=== PATIENT | male | born 1965 | race Caucasian/White ===

== ENCOUNTER 2021-11-07 16:25 | Emergency (ER) | payer BC, SELFPAY ==
[2021-11-07 16:32] VITALS: BP 140/89; PULSE 83; RESP 14; TEMP 36.7; O2SAT 99; BMI 25.0
[2021-11-07 16:45] VITALS: BP 146/84; PULSE 80; RESP 18; TEMP 36.4; O2SAT 98; BMI 25.0
--- NOTE | 2021-11-07 18:36 | ED_ITS ---
HPI - Eye Problem General Date Seen: 11/07/21 Chief complaint: Eye Problems Stated complaint: OBJECT IN RIGHT EYE Time Seen by Provider: 11/07/21 16:32 Source: patient Mode of arrival: ambulatory Limitations: no limitations History of Present Illness HPI Narrative: Patient is a very nice 56-year-old gentleman who presents here with the feeling that something is in his right eye, this occurred approximately since yesterday at 2:00 a.m., he does work with metal, but does not remember getting anything in his eye and was wearing safety glasses he thinks it might be a lash in did try pulling his eyelid over his eye and irrigating it out when this occurred last night. All day today as the feeling of something is in his eye. He has really lost a lot of visual acuity but says it is a little bit blurry from time to time. No previous history of anything significant his eye is not were contacts denies any fevers chills or sweats or other issue. chief complaint: eye pain, eye redness and foreign body Onset (ago): hour(s) Onset description: sudden Duration: constant Location: right eye Eye Symptoms: foreign body sensation Place: home Mechanism: none Severity: moderate Associated symptoms: none Treatments Prior to Arrival: irrigated eye Related Data Patient tetanus UTD: No Home Medications Medication Instructions Recorded Confirmed albuterol sulfate 90 mcg/actuation inhalation 11/07/21 aerosol inhaler cetirizine 5 mg-pseudoephedrine ER 1 tab PO BID 11/07/21 11/07/21 120 mg tablet,extended release,12hr (Zyrtec-D) fluticasone 250 mcg-salmeterol 50 inhalation 11/07/21 mcg/dose blistr powdr for inhalation (Advair Diskus) ipratropium 0.5 mg-albuterol 3 mg ml inhalation 11/07/21 (2.5 mg base)/3 mL nebulization soln montelukast 10 mg tablet mg 11/07/21 multivitamin 1 tab PO DAILY 11/07/21 11/07/21 Allergies Allergy/AdvReac Type Severity Reaction Status Date / Time Sulfa (Sulfonamide AdvReac Intermediate Rash Verified 11/07/21 16:50 Antibiotics) pennicillin AdvReac Intermediate Rash Uncoded 11/07/21 16:50 Review of Systems Status of ROS: Reports: 6 or more systems reviewed and unremarkable except as noted in History and below Exam Narrative: Exam Narrative: Patient is a very nice gentleman no apparent distress examination of the right eye shows a little bit a redness of his sclera, there is no conjunctival redness, no swelling of his legs, no discharge. Extraocular muscles are normal in pupils are equal round reactive to light. Tetracaine is used in his right eye, this resulted in feeling of foreign body going away. New some fluorescein, at the 5 o'clock position there is a small area of depression consistent with a corneal abrasion, I was not able to see any evidence of a foreign body, or rust ring. His upper lid is everted and normal, and swabbed lower lid is checked and also normal. Const: Vital Signs, click to edit/add: Vital Signs - 24 hr 11/07/21 16:32 11/07/21 16:45 Temperature 98.1 F 97.6 F Pulse Rate [Right Pulse Oximeter] 83 80 Respiratory Rate 14 18 Blood Pressure [Ri ght Upper Arm] 140/89 H 146/84 H Pulse Oximetry 99 98 Oxygen Delivery Me thod Room Air Room Air Documenting provider has reviewed patient's vital signs: yes Common normals: no apparent distress Course Vital Signs Vital signs: Initial Vital Signs Temperature 98.1 F 11/07/21 16:32 Temperature Source Temporal Artery Scan 11/07/21 16:32 Pulse Rate 83 11/07/21 16:32 Respiratory Rate 14 11/07/21 16:32 Blood Pressure 140/89 H 11/07/21 16:32 Blood Pressure Mean 106 11/07/21 16:32 Blood Pressure Position Sitting 11/07/21 16:32 Pulse Oximetry 99 11/07/21 16:32 Oxygen Delivery Method 11/07/21 16:32 Vital Signs Temperature 98.1 F 11/07/21 16:32 Pulse Rate 83 11/07/21 16:32 Respiratory Rate 14 11/07/21 16:32 Blood Pressure 140/89 H 11/07/21 16:32 Pulse Oximetry 99 11/07/21 16:32 Oxygen Delivery Method 11/07/21 16:32 Temperature 97.6 F 11/07/21 16:45 Pulse Rate 80 11/07/21 16:45 Respiratory Rate 18 11/07/21 16:45 Blood Pressure 146/84 H 11/07/21 16:45 Pulse Oximetry 98 11/07/21 16:45 Oxygen Delivery Method 11/07/21 16:45 MDM - Eye Problem Differential Diagnosis Differential diagnosis: Likely corneal abrasion, conjunctivitis, acute iritis, hyphema, periorbital cellulitis, subconjunctival hemorrhage, glaucoma, corneal ulcer and ruptured globe Medical Records Attestation: I reviewed the patient's medical records. Discharge Plan Discharge Clinical Impression: Corneal abrasion Patient Disposition: Home, Self-Care Condition: Stable Instructions: Corneal Abrasion (DC) Additional Instructions: Home, rest, use of antibiotic drops in her eye. Recommend sunglasses, and safety glasses otherwise. If your not completely better by 2 days from now then I recommend follow-up at [facility] for recheck. Increasing pain, discharge, then he should come back to the ER. Ibuprofen 600 mg p.o. t.i.d. is a very effective treatment for this. Seems to be more of a corneal abrasion with foreign body sensation. Prescriptions: No Action fluticasone propion-salmeterol [Advair Diskus] 250-50 mcg/dose blister with device INHALATION Label Comments: INHALE 1 DOSE BY MOUTH TWICE DAILY IN THE MORNING AND EVENING APPROXIMATELY 12 HOURS APART. RINSE MOUTH AFTER EACH USE ipratropium-albuterol 0.5 mg-3 mg(2.5 mg base)/3 mL solution for nebulization INHALATION Label Comments: USE 1 AMPULE IN NEBULIZER 4 TIMES DAILY NEEDED montelukast 10 mg tablet Label Comments: TAKE 1 TABLET BY MOUTH ONCE DAILY IN THE EVENING albuterol sulfate 90 mcg/actuation HFA aerosol inhaler INHALATION Label Comments: INHALE 2 PUFFS BY MOUTH EVERY 4 TO 6 HOURS NEEDED cetirizine-pseudoephedrine [Zyrtec-D] 5-120 mg tablet extended release 12 hr 1 tab PO BID multivitamin Tablet 1 tab PO DAILY Follow Up/Referrals: Alexei Teran DO [Referring] - Ranjeet Stack OD [Referring] - Barry Anderson [Referring] - Provider,Not a Local [Primary Care Provider] - Peter Ac DO [Referring] - Stand Alone Forms: [facility] Info Instructions Procedures Eye Procedure Right: Location: cornea Topical anesthetic used: proparacaine Foreign body: other Evidence of corneal penetration: No Technique: cotton tip swab Procedure performed under: direct visualization with magnification and slit-lamp Post-procedure medication: topical anesthetic Patient tolerated procedure: well and no complications
[2021-11-07] MEDS: IBUPROFEN 600 MG TABLET PO (18:54)
[2021-11-07] MEDS: TETANUS/DIPHTH/PERTUSSIS 0.5 ML SYRINGE IM (18:54)
[2021-11-07] MEDS: TETRACAINE 0.5% OPHTH 2 DROP EYE-RIGHT (19:19)
[2021-11-07] MEDS: FLUORESCEIN SODIUM TOPICAL STRIP 1 STRIP EYE-RIGHT (19:19)
--- OUTSIDE RECORDS SUMMARY | 2021-11-11 07:26 | XMS_ITS | Clinical Summary ---
:1965 Author Organization [facility] [place] [address] Care Team Providers Name Role Phone Tika Mast Primary Care Provider [phone] Allergies Active Allergy Reactions Severity Noted Date Comments Unlisted Allergen Anaphylaxis High 12/23/2019 Bananas, w alnuts, (Include Detail In fresh micki matt, Comments) dragon fruit, t sunil fish, all melon s Penicillins Rash 04/25/2009 Pork/Porcine Containing Diarrhea 12/23/2019 Products Sulfa (Sulfonamide *Unknown - Pt Doesn't 04/25/2009 Antibiotics) Remember Medications Medication Sig Dispensed Refills Start Date End Date Status albuterol HFA Inhale 2 Puffs by 0 Active (PRO-AIR; VENTOLIN; mouth every 6 PROVENTIL) 90 hours if needed. mcg/actuation inhaler montelukast Take 20 mg by 0 11/27/2009 Act cas (SINGULAIR) 10 mg mouth once daily. tablet aspirin 81 mg tablet Take 1 tablet by 0 04/10/2011 Active mouth once daily with a meal. cetirizine-pseudoephe Take 1 tablet by 60 tablet 5 09/24/2016 Active drine, 5-120 mg, mouth 2 times (ZYRTEC-D) 5-120 mg daily. tabletIndications: Seasonal allergic rhinitis due to pollen MULTIVIT,THX,CALCIUM, Take 1 tablet by 0 Active IRON,MINS mouth. (MULTIVITAMIN AND MINERAL ORAL) nebulizer accessories For home use. 1 Kit 0 03/26/2019 Active kitIndications: Length of need: Exacerbation of 99 asthma, unspecified asthma severity, unspecified whether persistent ADVAIR DISKUS 250-50 1 Puff once 0 11/13/2019 Active mcg/dose diskus daily. inhaler albuterol-ipratropium Inhale 3 mL via a 60 mL 3 12/19/2020 Active (DUONEB) (2.5-0.5 mg) nebulizer 4 times in 3 mL NEBULIZATION daily if needed solutionIndications: for Shortness of Asthma, unspecified Breath 1st choice asthma severity, or Wheezing 1st unspecified whether choice. Every am complicated, unspecified whether persistent hydrocortisone 2.5% Apply to 30 g 0 07/23/2021 Active creamIndications: hemorrhoid 2 x Hemorrhoids, external daily polyethylene Take 4,000 mL by 4000 mL 0 10/17/2021 2 glycol-electrolyte mouth one time (GOLYTELY) for 1 dose. 236-22.74-6.74 -5.86 gram suspensionIndications : Encounter for screening colonoscopy Active Problems Problem Noted Date Exotropia, alternating 10/09/2020 Myopia of both eyes with astigmatism and presbyopia Tinnitus of both ears 08/24/2017 Colon polyp, repeat in 10/201911/10/2016 Overview: 3 mm polyp at the hepatic flexure sessil e serrated adenoma 2 mm polyp in the descending colon, infl ammatory polyp Non-bleeding hemorrhoids. Asthma 04/25/2009 Seasonal allergies 04/25/2009 Screening for colon cancer Calculus of gallbladder without cholecystitis without obstruction Encounter for colonoscopy due to history of adenomatou s colonic polyps Encounters Date Type Specialty Care Team Description 11/05/2021 Anesthesia Event Yogi Carrasco MD 11/05/2021 Surgery Harsha Vera COLONOSCBernabe SWAN MD 11/05/2021 Hospital Encounter Harsha Vera Col on cancer screening (Primary Dx) 11/05/2021 Travel 10/16/2021 Telephone Tika Mast PA from Last 3 Months Immunizations Name Administration Dates Next Due COVID-19 vaccine (Moderna 100mcg/0.5mL) LELIA PATTON 11/02/2020, 10/05/2020 COVID-19 vaccine (Moderna Booster 50mcg/0.25mL) ABDI, 07/23/19 22 MDV Pneumococcal Poly,23-Valent (Pneumovax) 04/19/2003 Td (Age >=7 Years) 08/07/2006 Tdap 04/27/2012 Family History Medical History Relation Name Comments Cancer-prostate Father Other Father COPD Other Mother Emphysema Stroke Mother Relation Name Status Comments Father Mother Social History Tobacco Use Types Packs/Day Years Used Date Never Smoker Smokeless Tobacco: Never Used Tobacco Cessation: Counseling Given: Yes Alcohol Use Standard Drinks/Week Comments Yes 0 (1 standard drink = 0.6 oz pure alcoho l) once a year Alcohol Habits Answer Date Recorded How often do you have a drink containing alcohol? Monthly or less 02/15/2020 How many drinks containing alcohol do you have on a 1 or 2 02/15/2020 typical day when you are drinking? How often do you have six or more drinks on one Never 02/15/2020 occasion? Comment: once a year 12/26/2019 Sex Assigned at Date Recorded Not on file COVID-19 Exposure Response Date Recorded In the last 10 days, have you been in contact with No / Unsu re 11/05/2021 9:55 AM CDT someone who was confirmed or suspected to have Coronavirus/COVID-19? Obstetrics History Last Filed Vital Signs Vital Sign Reading Time Taken Comments Blood Pressure 123/83 11/05/2021 1:00 PM CDT Pulse 65 11/05/2021 1:00 PM CDT Temperature 36.7 ??C (98 ??F) 11/05/2021 10:23 AM CDT Respiratory Rate 16 11/05/2021 1:00 PM CDT Oxygen Saturation 99% 11/05/2021 1:00 PM CDT Inhaled Oxygen Concentration - - Weight 94.7 kg (208 lb 11.2 oz) 11/05/2021 10:23 AM CDT Height 193 cm (6' 4) 11/05/2021 10:23 AM CDT Body Mass Index 25.4 11/05/2021 10:23 AM CDT Plan of Treatment Health Maintenance Due Date Last Done Comments Hepatitis C screening for age 0203/22/1982 18-79 Pneumococcal series for age 19-64 04/18/2004 04/19/2003 (2 - PCV) Zoster (shingles) series for age 0203/22/2014 50+ (1 of 2) Depression screening for age 12+ 11/22/2020 11/23/2019, 10/2017, 09/24/2016 Lipids for age 45-75 09/25/2021 09/25/2016, 04/27/2012 Influenza for age 50-64 10/17/2021 COVID-19 vaccine series (4 - 11/21/2021 07/22/2021, 021, Booster for Moderna series) 10/05/2020 Tetanus booster 04/27/2022 04/27/2012, 08/07/2006 BMI (ht and wt on same day) for 07/25/2022 07/25/2021, 06/07/2021, age 18+ 06/12/2020, Additional history exists Colonoscopy through age 75 11/05/2026 11/05/2021, 7 Tdap Completed 04/27/2012 Procedures Procedure Name Priority Date/Time Associated Diagnosis Comme nts COLONOSCOPY 11/05/2021 11:14 AM Results for this CDT procedure are i n the results section . COLONOSCOPY 11/05/2021 11:08 AM screening CDT from Last 3 Months Results COLONOSCOPY (11/05/2021 11:14 AM CDT) Specimen (Source) Anatomical Collection Method Collection Time Re ceived Time Location / / Volume Laterality 11/05/2021 11:14 AM CDT Narrative This result has an attachment that is no t available. Transcriptions Harsha Vera MD - 11/05/2021 12:06 PM CDT Endoscopy Patient Name: David Mccarty Date: 11/05/2021 Gender: Male Date of : 1965 Admit Type: Outpatient Procedure: Colonoscopy Proceduralist: Harsha Vera MD Referring MD: Yoandy Chase Indications/Pre-Op Diagnosis: High risk colon cancer surveillance: Personal history of colonic polyps Medications: Monitored Anesthesia Care Procedure Description: The patient had risks, benefits and alt ernatives explained to and gave informed consent. The patient had a sta ble cardiopulmonary status and judged an adequate candidate for consci ous sedation. The endoscope was passed through the an us and advanced to the cecum, identified by appendiceal orifice and i leocecal valve. The colonoscopy was performed without difficulty. The p atient tolerated the procedure well. The quality of the bowel preparat ion was good. The ileocecal valve, appendiceal orifice, and rectum were photographed. Complications: No immediate complication s. Estimated Blood Loss & Specimen: Estimated blood loss: none. Specimen collected: None Findings: The colon appeared normal. The perianal and digital rectal examina tions were normal. Impressions/Post-Op Diagnosis: - The colon appeared normal. - No specimens collected. Recommendation: - Repeat colonoscopy in 5 years for gabbie veillance. Harsha Vera MD 11/05/2021 12:05:59 PM This report has been signed electronical ly. Note Initiated On: 11/05/2021 11:14 AM Total Procedure Duration Time 0 hours 23 minutes 39 seconds Scope Withdrawal Time 0 hours 9 minutes 27 seconds Harsha Vera MD PROCEDURE ORD from Last 3 Months Insurance Payer Benefit Plan / Subscriber ID Effective Dates Phone Addre ss Type Group [employer] [id number] 2018-Rh[place] [address] [place] [address] BLUE CROSS BLUE CROSS OF [id number] 2020-Rhian[place] [address] [address] [place] [address] Odom,David Motor Vehicle Self 1965 [address] [id number] David Odom Workers Comp Self [id number] ([place] [id number] Advance Directives Latest Code Status on File Code Status Date Activated Date Inactivated Comments Full Code 11/05/2021 10:36 AM 11/05/2021 3:13 PM Code Status Discussion: Reviewed Preferences Full Code 12/26/2019 2:00 PM 12/26/2019 8:33 PM Code Status Discussion: Not Discussed Full Code 11/07/2016 8:24 AM 11/07/2016 1:00 PM Care Teams Art Psychotherapist Relationship Specialty Start Date End Date Tika Mast PA PCP - General 11/27/09 [id number] [facility] [place] [id number]
== END 2021-11-07 19:08 | disposition home or self-care (01) ==
PROVIDERS: Emergency Provider Family Medicine
DX: S05.01XA Injury of conjunctiva and corneal abrasion without foreign body, right eye, initial encounter (principal); X58.XXXA Exposure to other specified factors, initial encounter; Y93.9 Activity, unspecified; Y92.9 Unspecified place or not applicable; Y99.9 Unspecified external cause status
CPT/HCPCS: 90471; 90715; 99283; A9270

== ENCOUNTER 2022-12-18 19:54 | Emergency (ER) | payer BC, SELFPAY ==
[2022-12-18 20:03] VITALS: BP 136/82; PULSE 83; RESP 16; TEMP 36.8; O2SAT 98; BMI 26.8
--- NOTE | 2022-12-18 20:18 | ED_ITS ---
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 States that he felt it yesterday. Denies any changes in his vision. Related Data Home Medications Medication Instructions Recorded Confirmed albuterol sulfate 90 mcg/actuation 2 puff inhalation Q4H PRN 11/07/21 07/14/22 aerosol inhaler cetirizine 5 mg-pseudoephedrine ER 1 tab PO BID 11/07/21 07/14/22 120 mg tablet,extended release,12hr (Zyrtec-D) fluticasone 250 mcg-salmeterol 50 1 inh inhalation Q12H 11/07/21 07/14/22 mcg/dose blistr powdr for inhalation (Advair Diskus) ipratropium 0.5 mg-albuterol 3 mg ml inhalation 11/07/21 (2.5 mg base)/3 mL nebulization soln montelukast 10 mg tablet 10 mg PO DAILY 11/07/21 07/14/22 multivitamin 1 tab PO DAILY 11/07/21 07/14/22 Allergies Allergy/AdvReac Type Severity Reaction Status Date / Time Penicillins Allergy Verified 07/14/22 08:26 Sulfa (Sulfonamide AdvReac Intermediate Rash Verified 11/07/21 16:50 Antibiotics) Review of Systems Status of ROS: Reports: 6 or more systems reviewed and unremarkable except as noted in History and below [facility] Social History Smoking Status: Never smoker Do you use any of these nicotine containing products: None How often do you have a drink containing alcohol: never How often do you have six or more drinks on one occasion: Never AUDIT-C Alcohol total score: 0 Non-prescribed substance use: denies use Exam Narrative: Exam Narrative: Well-nourished well-developed patient in no acute distress. Alert and oriented. Answers questions appropriately. Mood and affect are appropriate. Thoughts are goal oriented and rational. No tangential or magical thinking noted. Patient speaks in full sentences without needing to catch his breath. HEENT: Normocephalic atraumatic. Pupils are equally round reactive to light. Extraocular muscles are intact. Conjunctivae are moist without any icterus noted. Moist mucous membranes. Patient has an obvious piece of metal on the medial border of the iris on his cornea. There is conjunctival injection around it. Const: Vital Signs, click to edit/add: Vital Signs - 24 hr 12/18/22 20:03 Temperature 98.2 F Pulse Rate [Pulse Oximeter] 83 Respiratory Rate 16 Blood Pressure [Ri ght Upper Arm] 136/82 Pulse Oximetry 98 Oxygen Delivery Me thod Room Air Course Course ED Course: In the ER today tetracaine was used on the eye and a 30 gauge needle was used to remove the piece of metal without difficulty. He does have a rust ring already present. There is no evidence of any other abnormality on the exam today. Vital Signs Vital signs: Initial Vital Signs Temperature 98.2 F 12/18/22 20:03 Temperature Source Temporal Artery Scan 12/18/22 20:03 Pulse Rate 83 12/18/22 20:03 Respiratory Rate 16 12/18/22 20:03 Blood Pressure 136/82 12/18/22 20:03 Blood Pressure Mean 100 12/18/22 20:03 Pulse Oximetry 98 12/18/22 20:03 Oxygen Delivery Method Room Air 12/18/22 20:03 Vital Signs Temperature 98.2 F 12/18/22 20:03 Pulse Rate 83 12/18/22 20:03 Respiratory Rate 16 12/18/22 20:03 Blood Pressure 136/82 12/18/22 20:03 Pulse Oximetry 98 12/18/22 20:03 Oxygen Delivery Method Room Air 12/18/22 20:03 Temperature 98.2 F 12/18/22 20:03 Pulse Rate 83 12/18/22 20:03 Respiratory Rate 16 12/18/22 20:03 Blood Pressure 136/82 12/18/22 20:03 Pulse Oximetry 98 12/18/22 20:03 Oxygen Delivery Method Room Air 12/18/22 20:03 Medical Decision Making MDM Narrative Medical decision making narrative: 57-year-old male with metal foreign body in the cornea. Will treat him with erythromycin and he is instructed to follow up with Ophthalmology for further management this week. They may need to Dremel the rust ring. Patient states he has had this done many times before and he understands why he needs to do. He had no other questions. Discharge Plan Discharge Clinical Impression: Foreign body in eye Patient Disposition: Home, Self-Care Condition: Stable Additional Instructions: Use 1 small ribbon of antibiotic ointment to the eye 3 times per day for the next 5 days. You do need to see the eye doctor this week to make sure that nothing else needs to be done as far as the rust ring that is left. Given that the ring is large I do recommend you follow-up tomorrow or or Thursday. Prescriptions: No Action fluticasone propion-salmeterol [Advair Diskus] 250-50 mcg/dose blister with device 1 inh INHALATION Q12H Patient Comments: INHALE 1 DOSE BY MOUTH TWICE DAILY IN THE MORNING AND EVENING APPROXIMATELY 12 HOURS APART. RINSE MOUTH AFTER EACH USE ipratropium-albuterol 0.5 mg-3 mg(2.5 mg base)/3 mL solution for nebulization INHALATION Patient Comments: USE 1 AMPULE IN NEBULIZER 4 TIMES DAILY NEEDED montelukast 10 mg tablet 10 mg PO DAILY Patient Comments: TAKE 1 TABLET BY MOUTH ONCE DAILY IN THE EVENING albuterol sulfate 90 mcg/actuation HFA aerosol inhaler 2 puff INHALATION Q4H PRN Patient Comments: INHALE 2 PUFFS BY MOUTH EVERY 4 TO 6 HOURS NEEDED cetirizine-pseudoephedrine [Zyrtec-D] 5-120 mg tablet extended release 12 hr 1 tab PO BID multivitamin Tablet 1 tab PO DAILY Follow Up/Referrals: Provider,Not a Local [Primary Care Provider] - Stand Alone Forms: [facility] Info Instructions
== END 2022-12-18 20:36 | disposition home or self-care (01) ==
PROVIDERS: Emergency Provider Family Medicine
DX: T15.02XA Foreign body in cornea, left eye, initial encounter (principal)
CPT/HCPCS: 65220; 99283; 99284; A9270

== ENCOUNTER 2024-09-03 03:46 | Emergency (ER) | payer BC, SELFPAY ==
--- OUTSIDE RECORDS SUMMARY | 2024-09-03 03:48 | XMS_ITS | Patient Health Record ---
Author Organization [facility] Address [address] [place] [address] Care Team Providers Care Consulting Senior Practice Director Name Role Phone [employer] Primary Care Provider RANDY Zimmer Unavailable [phone] Allergies Allergen (clinical drug ingredient) Drug/Non Drug Allergy documented on EMR Reaction Allergy Type Onset Date Status Penicillin Unknown Drug Allergy Active Sulfa Unknown Drug Allergy Active Reason For Referral No Information Medications Medication SIG (Take, Route, Fr equency, Duration) Notes Start Date End Date Status Singulair Active Albuterol Sulfate HFA Active Breo Ellipta Active Ciprofloxacin Active Flagyl Active Social History Tobacco Use: Social History Observation Description Date Details (start date - stop date) Never Smoker NA - NA Social History Tobacco Use: Social Info Question Answer Notes Tobacco use/smoking Are you a nonsmoker Problems Problem Type SNOMED Code ICD Code Onset Dates Problem Status W/U Status Risk Notes Problem Bilateral tinnitus (8903027458029) Tinnitus, bilateral (H93.13) Active confirmed Problem Dizziness (217868585) Dizziness (R42) Active confirmed Problem Sensorineural hearing loss, bilateral (341245021) Bilateral sensorineural hearing loss (H90.3) Active confirmed Plan Of Treatment No Information Insurance Providers Payer Name Payer Address Payer Phone Subscriber Number Group Number Insured Name Patient Relationship to Insured Coverage Start Date Coverage End Date BLUE CROSS OUT OF STATE [address] [address] [place], [place] [id number] David Odom Self - patient is the insured Medical (General) History Medical History History ICD Code asthma transient global amnesia Surgical History Surgery Date(Month/Year) vasectomy
--- OUTSIDE RECORDS SUMMARY | 2024-09-03 03:48 | XMS_ITS | Clinical Summary ---
Author Organization [facility] Address [address] [place] [id number] Care Team Providers Care Director Of Psychiatry Name Role Phone Pcp, No Primary Care Provider Unavailabl e Allergies Active Allergy Reactions Criticality Noted Date Comments Unlisted Allergen (Include Detail In Comments) Anaphylaxis High 12/23/2019 Bananas, walnuts, fresh tomato, dragon fruit, tuna fish, all melons Penicillins Rash 04/25/2009 Pork/Porcine Containing Products Diarrhea 12/23/2019 Sulfa (Sulfonamide Antibiotics) *Unknown - Pt Doesn't Remember 04/25/2009 Medications aspirin 81 mg tablet Take 1 tablet by mouth once daily with a meal. 0 2 Active cetirizine-pseudo ephedrine, 5-120 mg, (ZYRTEC-D) 5-120 mg tabletIndications :Seasonal allergic rhinitis due to pollen Take 1 tablet by mouth 2 times daily. 60 tablet 5 7 Active MULTIVIT,THX,CALC IUM,IRON,MINS (MULTIVITAMIN AND MINERAL ORAL) Take 1 tablet by mouth. Active montelukast (SINGULAIR) 10 mg tabletIndications :Moderate persistent asthma without complication (HC) Take 1 Tablet (10 mg) by mouth once daily. 90 Tablet 3 4 Active albuterol HFA (PRO-AIR; VENTOLIN; PROVENTIL) 90 mcg/actuation inhalerIndication s:Moderate persistent asthma without complication (HC) Inhale 2 Puffs by mouth every 6 hours if needed for Shortness Of Breath or Wheezing. 1 Each 5 4 Active albuterol-ipratro pium (DUONEB) (2.5-0.5 mg) in 3 mL NEBULIZATION solutionIndicatio ns:Asthma, unspecified asthma severity, unspecified whether complicated, unspecified whether persistent (HC) Inhale 3 mL via a nebulizer 4 times daily if needed for Shortness of Breath 2nd choice or Wheezing 2nd choice. For asthma exacerbations. 60 mL 5 4 Active nebulizer accessories kitIndications:Ex acerbation of asthma, unspecified asthma severity, unspecified whether persistent (HC) For home use. Length of need: 99 1 Kit 4 Active fluticasone propion-salmetero L (Wixela Inhub) 250-50 mcg/Dose diskus inhalerIndication s:Moderate persistent asthma without complication (HC) Inhale 1 Puff by mouth every 12 hours. 180 Each 3 4 Active Active Problems Problem Noted Date Diagnosed Date Exotropia, alternating 10/09/2020 Myopia of both eyes with astigmatism and presbyo liyah 10/09/2020 Tinnitus of both ears 08/24/2017 Colon polyp, repeat in 10/201911/10/2016 Overview (11/10/2016): 3 mm polyp at the hepatic flexure sessile serrated adenoma 2 mm polyp in the descending colon, inflammatory polyp Non-bleeding hemorrhoids. Asthma 04/25/2009 Seasonal allergies 04/25/2009 Screening for colon cancer Calculus of gallbladder with out cholecystitis without obstruction Encounter for colonoscopy du e to history of adenomatous colonic polyps Immunizations Immunization Administration Dates Next Due COVID-19 vaccine (Moderna 100mcg/0.5mL) PF, MDV 11/02/2020,10/05/2020 COVID-19 vaccine (Moderna Jorge codie 50mcg/0.25mL) PF, MDV 07/22/2021 Pneumococcal Poly,23-Valent (Pneumovax) 04/19/19 04 Td (Age >=7 Years) 08/07/2006 Tdap 04/27/2012 Family History Medical History Relation Name Comments Cancer-prostate Father Other Father COPD Other Mother Emphysema Stroke Mother Relation Name Status Comments Father Mother Social History Tobacco Use Types Packs/Day Years Used Date Smoking Tobacco: Never Smokeless Tobacco: Never Tobacco Cessation:Counseling Given: Yes Alcohol Use Standard Drinks/Week Comments Yes 0 (1 standard drink = 0.6 oz pur e alcohol) once a year PHQ-2 Answer Date Recorded PHQ-2 TOTAL SCORE 0 11/23/2019 Social Connections Answer Date Recorded Frequency of Communication with Friends and Fami ly Not on file 02/16/2021 Financial Resource Strain Answer Date R ecorded Difficulty of Paying Living Expenses Not on file 02/16/2021 Difficulty of Paying Living Expenses Not on file 02/16/2021 Sex and Gender Information Value Date Recorded Sex Assigned at Not on file Legal Sex Male 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 Gender Identity Not on file Sexual Orientation Not on file 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 Not on file Not on file Not on file Obstetrics History Last Filed Vital Signs Vital Sign Reading Time Taken Comments Blood Pressure 116/82 01/07/2024 11:05 AM EQUIPMENT MAINTENANCE TECHNICIAN Pulse 90 01/07/2024 11:05 AM EQUIPMENT MAINTENANCE TECHNICIAN Temperature 36.7 C (98 F) 11/05/2021 10:23 AM CDT Respiratory Rate 16 11/05/2021 1:00 PM CDT Oxygen Saturation 97% 01/07/2024 11:05 AM EQUIPMENT MAINTENANCE TECHNICIAN Inhaled Oxygen Concentration - - Weight 102.5 kg (226 lb) 01/07/2024 11:05 AM EQUIPMENT MAINTENANCE TECHNICIAN Height 193 cm (6' 4) 01/07/2024 11:05 AM EQUIPMENT MAINTENANCE TECHNICIAN Body Mass Index 27.51 01/07/2024 11:05 AM EQUIPMENT MAINTENANCE TECHNICIAN Plan of Treatment Health Maintenance Due Date Last Done Comments HIV for age 15-65 1979 Hepatitis C screening for age 18-79 1982 Pneumococcal series for age 50+ (2 of 2 - PCV) 04/18/2004 04/19/2003 Zoster (shingles) series for age 50+ (1 of 2) 2014 Depression screening for age 12+ 11/22/2020 11/23/2019, 08/24/2017, 09/24/2016 Lipids for age 45-75 09/25/2021 09/25/2016, 04/28/19 13 Tetanus booster 04/27/2022 04/27/2012, 08/07/2006 COVID-19 vaccine series ( season) 2023 07/22/2021, 11/02/2020, 10/05/2020 RSV vaccine for adults or (1 - Risk 60-74 years 1-dose series) 2024 Influenza Vaccine (#1) 2024 BMI (ht and wt on same day) for age 18+ 01/06/2025 01/07/2024, 07/25/2021, 07/22/2021, Additional history exists Colonoscopy through age 75 11/05/2026 11/05/2021, Hepatitis B series for 19+ Aged Out N o longer eligible based on patient's age to complete this topic Procedures Procedure Name Priority Date/Time Associated Diagnosis Comments COLONOSCOPY 11/05/2021 11:14 AM CDT LIPID PANEL W REFLEX MEASURED LDL Routine 09/25/2016 9:03 AM CDT Screening for lipoid disorders from Last 3 Months or Most Recently Relevant to Health Maintenance Results * COLONOSCOPY (11/05/2021 11:14 AM CDT) 11/05/2021 11:1 4 AM CDT Narrative Transcriptions Dock, Harsha Miller MD - 11/05/2021 12:06 PM CDT Endoscopy Patient Name: David Odom Procedure Date: 11/05/2021 Gender: Male Date of : 1965 Admit Type: Outpatient Procedure: Colonoscopy Proceduralist: Harsha Vera MD Referring MD: Yoandy Chase Indications/Pre-Op Diagnosis: High risk colon cancer surveillance:Personal history of colonic polyps Medications: Monitored Anesthesia Care Procedure Description: The patient had risks, benefits and alternatives explained to andgave informed consent. The patient had a stable cardiopulmonary status and judged an adequate candidate for conscious sedation. The endoscope was passed through the anus and advanced to the cecum, identified by appendiceal orifice and ileocecal valve. Thecolonoscopy was performed without difficulty. The patient tolerated the procedure well. The quality of the bowel preparation was good. The ileocecal valve, appendiceal orifice, and rectum were photographed. Complications: No immediate complications. Estimated Blood Loss & Specimen: Estimated blood loss: none. Specimen collected: None Findings: The colon appeared normal. The perianal and digital rectal examinations were normal. Impressions/Post-Op Diagnosis: - The colon appeared normal. - No specimens collected. Recommendation: - Repeat colonoscopy in 5 years for surveillance. Harsha Vera MD 11/05/2021 12:05:59 PM This report has been signed electronically. Note Initiated On: 11/05/2021 11:14 AM Total Procedure Duration Time 0 hours 23 minutes 39 seconds Scope Withdrawal Time 0 hours 9 minutes 27 seconds us Harsha Vera MD PROCEDURE ORD Final Result * LIPID PANEL W REFLEX MEASURED LDL (09/25/2016 9:03 AM CDT) CHOLESTEROL,TOTAL 127 100 - 199 mg/dL 09/25/2016 2:26 PM CDT [facility] TRIGLYCERIDES 51 <150 mg/dL 09/25/2016 2:26 PM CDT [facility] HDL CHOLESTEROL 42 >40 mg/dL 7 2:26 PM CDT [facility] NON-HDL CHOLESTEROL 85 <145 mg/dl 09/25/2016 2:26 PM CDT [facility] CHOL/HDL RATIO 3.02 <4.50 09/25/2016 2:26 PM CDT [facility] LDL CHOLESTEROL 75 <=130 mg/dL 09/25/2016 2:26 PM CDT [facility] PATIENT STATUS FASTING 09/25/2016 2:26 PM CDT [facility] Blood BLOOD SPECIMEN / Unknown Venipuncture / Unknown 09/25/2016 9:03 AM CDT 09/25/2016 9:03 AM CDT us Jack Mckeon III, REGULATORY ASSOCIATE CHEMISTRY Final Result [facility] [address] [place] [address], from Last 3 Months or Most Recently Relevant to Health Maintenance Insurance [facility] Advance Directives * Full Code (Latest Code Status on File) Date Activated Date Inactivated Comments 11/05/2021 10:36 AM 11/05/2021 3:13 PM Question Answer Comments Code Status Discussion: Reviewed Preferences * Full Code Date Activated Date Inactivated Comments 12/26/2019 2:00 PM 12/26/2019 8:33 PM Question Answer Comments Code Status Discussion: Not Discussed * Full Code Date Activated Date Inactivated Comments 11/07/2016 8:24 AM 11/07/2016 1:00 PM Care Teams Director Of Psychiatry Relationship Specialty Start Date End Date Pcp, No . PCP - General 07/12/22
[2024-09-03 03:52] VITALS: BP 165/93; PULSE 99; RESP 16; TEMP 36.6; O2SAT 98; BMI 26.8
--- NOTE | 2024-09-03 04:10 | ED.EYEPROB ---
HPI - Eye Problem General Time Seen by Provider: 04:11 Date Seen: 09/03/24 Chief complaint: Eye Problems Stated complaint: something in left eye Time Seen by Provider: 09/03/24 03:56 Source: patient, family, RN notes reviewed and old records reviewed Mode of arrival: ambulatory Limitations: no limitations History of Present Illness HPI Narrative: 59-year-old male who wears glasses, presents with concern for foreign body in the left eye. Patient has had a irritation of the left eye since yesterday evening. No known foreign body. Denies vision changes. Related Data Home Medications ?Medication ?Instructions ?Recorded ?Confirmed albuterol sulfate 90 mcg/actuation 2 puff inhalation Q4H PRN 11/07/21 07/14/22 aerosol inhaler cetirizine 5 mg-pseudoephedrine ER 1 tab PO BID 11/07/21 07/14/22 120 mg tablet,extended release,12hr (Zyrtec-D) fluticasone 250 mcg-salmeterol 50 1 inh inhalation Q12H 11/07/21 07/14/22 mcg/dose blistr powdr for inhalation (Advair Diskus) ipratropium 0.5 mg-albuterol 3 mg ml inhalation 11/07/21 (2.5 mg base)/3 mL nebulization soln montelukast 10 mg tablet 10 mg PO DAILY 11/07/21 07/14/22 multivitamin 1 tab PO DAILY 11/07/21 07/14/22 Allergies Allergy/AdvReac Type Severity Reaction Status Date / Time Penicillins Allergy Verified 09/03/24 03:55 Sulfa (Sulfonamide AdvReac Intermediate Rash Verified 09/03/24 03:55 Antibiotics) PFSH PFS Social History Smoking Status: Never smoker Do you use any of these nicotine containing products: None How often do you have a drink containing alcohol: never How often do you have six or more drinks on one occasion: Never AUDIT-C Alcohol total score: 0 Non-prescribed substance use: denies use Exam Narrative: Exam Narrative: General: well nourished , NAD Head: Atraumatic and normocephalic ENT: External ears and external nose are normal Eyes: Conjunctival injection on the left, chemosis of the left lateral lower conjunctiva, with under fluorescence stain small corneal abrasion but no foreign body seen Neck: Full spontaneous range of motion of the neck Lungs: No respiratory distress Musculoskeletal: No tenderness or deformity Neurologic: No gross focal neurologic deficits Skin: No rashes Psych: Mood and affect are appropriate Const: Vital Signs, click to edit/add: Vital Signs - 24 hr 09/03/24 03:52 Temperature 97.8 F Pulse Rate [Right Pulse Oximeter] 99 Respiratory Rate 16 Blood Pressure [Ri ght Upper Arm] 165/93 H Pulse Oximetry 98 Oxygen Delivery Me thod Room Air Course Course ED Course: Patient seen examined, presents with concern for foreign body in the left eye. Unknown what this would be. On exam the left conjunctiva is injected with a corneal abrasion at about 4:00 a.m., chemosis in this area but no foreign body seen. Erythromycin ointment prescribed, follow-up with eye clinic. Vital Signs Vital signs: Initial Vital Signs Temperature 97.8 F 09/03/24 03:52 Temperature Source Temporal Artery Scan 09/03/24 03:52 Pulse Rate 99 09/03/24 03:52 Pulse Rhythm Regular 09/03/24 03:52 Pulse Strength 3+ Normal 09/03/24 03:52 Respiratory Rate 16 09/03/24 03:52 Blood Pressure 165/93 H 09/03/24 03:52 Blood Pressure Mean 117 H 09/03/24 03:52 Blood Pressure Position Sitting 09/03/24 03:52 Pulse Oximetry 98 09/03/24 03:52 Oxygen Delivery Method Room Air 09/03/24 03:52 Vital Signs Temperature 97.8 F 09/03/24 03:52 Pulse Rate 99 09/03/24 03:52 Respiratory Rate 16 09/03/24 03:52 Blood Pressure 165/93 H 09/03/24 03:52 Pulse Oximetry 98 09/03/24 03:52 Oxygen Delivery Method Room Air 09/03/24 03:52 Temperature 97.8 F 09/03/24 03:52 Pulse Rate 99 09/03/24 03:52 Respiratory Rate 16 09/03/24 03:52 Blood Pressure 165/93 H 09/03/24 03:52 Pulse Oximetry 98 09/03/24 03:52 Oxygen Delivery Method Room Air 09/03/24 03:52 Discharge Plan Discharge Clinical Impression: Corneal abrasion, Chemosis of conjunctiva Patient Disposition: Home, Self-Care Condition: Stable Instructions: Corneal Abrasion (DC) Additional Instructions: Apply antibiotic twice a day as prescribed Apply cool packs to eye to help with swelling Follow-up with eye doctor next week if not improved Activity Level: Activity as Tolerated Discharge Diet: Regular Prescriptions: No Action fluticasone propion-salmeterol [Advair Diskus] 250-50 mcg/dose blister with device 1 inh INHALATION Q12H Patient Comments: INHALE 1 DOSE BY MOUTH TWICE DAILY IN THE MORNING AND EVENING APPROXIMATELY 12 HOURS APART. RINSE MOUTH AFTER EACH USE ipratropium-albuterol 0.5 mg-3 mg(2.5 mg base)/3 mL solution for nebulization INHALATION Patient Comments: USE 1 AMPULE IN NEBULIZER 4 TIMES DAILY NEEDED montelukast 10 mg tablet 10 mg PO DAILY Patient Comments: TAKE 1 TABLET BY MOUTH ONCE DAILY IN THE EVENING albuterol sulfate 90 mcg/actuation HFA aerosol inhaler 2 puff INHALATION Q4H PRN Patient Comments: INHALE 2 PUFFS BY MOUTH EVERY 4 TO 6 HOURS NEEDED cetirizine-pseudoephedrine [Zyrtec-D] 5-120 mg tablet extended release 12 hr 1 tab PO BID multivitamin Tablet 1 tab PO DAILY Follow Up/Referrals: Provider,Not a Local [Primary Care Provider, Family Practice] Stand Alone Forms: [employer]SupportAssistant[employer] Info Instructions
== END 2024-09-03 04:12 | disposition home or self-care (01) ==
PROVIDERS: Emergency Provider Family Medicine
DX: H11.422 Conjunctival edema, left eye (principal); S05.02XA Injury of conjunctiva and corneal abrasion without foreign body, left eye, initial encounter
CPT/HCPCS: 99283; A9270